=== PATIENT | male | born 2000 | race American Indian/Alaskan Native ===

== ENCOUNTER 2019-02-03 20:16 | Emergency (ER) | payer SELFPAY ==
[2019-02-03] MEDS ORDERED: IBUPROFEN 600 MG TAB PO ONE ×2 (22:05→22:07)
--- NOTE | 2019-02-03 22:05 | Event Note ---
ED Screening Note ED Screening Note: paronychia to the left middle finger that began three days ago +subjective fever states he bites his finger nails This initial assessment/diagnostic orders/clinical plan/treatment(s) is/are subject to change based on patients health status, clinical progression and re- assessment by fellow clinical providers in the ED. Further treatment and workup at subsequent clinical providers discretion. Patient/guardian urged not to elope from the ED as their condition may be serious if not clinically assessed and managed. Initial orders include: given ibuprofen needs I&D
--- NOTE | 2019-02-04 01:42 | Emergency Department Report ---
- General Chief complaint: Skin/Abscess/Foreign Body Stated complaint: LT HAND PAIN Time Seen by Provider: 02/03/19 22:03 Source: patient Mode of arrival: Ambulatory Limitations: No Limitations - History of Present Illness Initial comments: pt is is a 18 y/o aam who presents for left index finger paronychia, states he bites his finger nails, and has developed and infection. There is no fever or chills no n/v , there is erythema swelling pain to finger tip. MD complaint: other (paronychia left index finger ) Onset/Timin -: hour(s) Location: L hand Severity: moderate Severity scale (0 -10): 5 Quality: aching Consistency: constant Improves with: none Worsens with: movement Context: none Associated symptoms: denies other symptoms Treatments Prior to Arrival: none - Related Data Previous Rx's Medication Instructions Recorded Last Taken Type cephALEXin [Keflex] 500 mg PO Q8HR #30 cap 02/04/19 Unknown Rx traMADoL [Ultram] 50 mg PO Q6HR PRN #12 tablet 02/04/19 Unknown Rx Allergies Allergy/AdvReac Type Severity Reaction Status Date / Time nut - unspecified Allergy Hives Verified 02/03/19 21:13 Abscess Boil HPI - HPI Chief Complaint: Skin/Abscess/Foreign Body Stated Complaint: LT HAND PAIN Time Seen by Provider: 02/03/19 22:03 Home Medications: Previous Rx's Medication Instructions Recorded Last Taken Type cephALEXin [Keflex] 500 mg PO Q8HR #30 cap 02/04/19 Unknown Rx traMADoL [Ultram] 50 mg PO Q6HR PRN #12 tablet 02/04/19 Unknown Rx Allergies/Adverse Reactions: Allergies Allergy/AdvReac Type Severity Reaction Status Date / Time nut - unspecified Allergy Hives Verified 02/03/19 21:13 ED Review of Systems ROS: Stated complaint: LT HAND PAIN Other details as noted in HPI Constitutional: denies: chills, fever Eyes: denies: eye pain, eye discharge, vision change ENT: denies: ear pain, throat pain Respiratory: denies: cough, shortness of breath, wheezing Cardiovascular: denies: chest pain, palpitations Endocrine: no symptoms reported Gastrointestinal: denies: abdominal pain, nausea, diarrhea Genitourinary: denies: urgency, dysuria Musculoskeletal: other (left index finger pain ). denies: back pain, joint swelling, arthralgia Skin: denies: rash, lesions Neurological: denies: headache, weakness, paresthesias Psychiatric: denies: anxiety, depression Hematological/Lymphatic: denies: easy bleeding, easy bruising ED Past Medical Hx - Past Medical History Previous Medical History?: Yes Additional medical history: Hidradenitis Suppurativa, "HS under both underarms" anemia - Surgical History Past Surgical History?: No - Social History Smoking Status: Never Smoker Substance Use Type: None - Medications Home Medications: Home Medications Medication Instructions Recorded Confirmed Last Taken Type cephALEXin [Keflex] 500 mg PO Q8HR #30 cap 02/04/19 Unknown Rx traMADoL [Ultram] 50 mg PO Q6HR PRN #12 tablet 02/04/19 Unknown Rx ED Physical Exam - General Limitations: No Limitations General appearance: alert, in no apparent distress - Head Head exam: Present: atraumatic, normocephalic - Eye Eye exam: Present: normal appearance, PERRL, EOMI Pupils: Present: normal accommodation - ENT ENT exam: Present: mucous membranes moist - Neck Neck exam: Present: normal inspection - Respiratory Respiratory exam: Present: normal lung sounds bilaterally. Absent: respiratory distress - Cardiovascular Cardiovascular Exam: Present: regular rate, normal rhythm, normal heart sounds. Absent: systolic murmur, diastolic murmur, rubs, gallop - GI/Abdominal GI/Abdominal exam: Present: soft, normal bowel sounds - Rectal Rectal exam: Present: deferred - Extremities Exam Extremities exam: Present: normal inspection - Back Exam Back exam: Present: normal inspection, full ROM. Absent: tenderness, rash noted - Neurological Exam Neurological exam: Present: alert, oriented X3, CN II-XII intact, normal gait, reflexes normal. Absent: motor sensory deficit - Psychiatric Psychiatric exam: Present: normal affect - Skin Skin exam: Present: warm, dry, intact, normal color, erythema. Absent: rash ED Course Vital Signs 02/03/19 20:23 Temperature 100.0 F H Pulse Rate 134 H Respiratory 18 Rate Blood Pressure 125/59 O2 Sat by Pulse 96 Oximetry - I & D Left Dorsal Finger Type of Procedure: Simple Site: left index finger paronychia Blade Size: 11 I & D Procedure: betadine prep, sterile dressing applied Progress: left index finger paronychia , site cleaned with betadine solution, anesthesia with lidocaine 1% plain, via digital block, incision with 11 blade straight , moderate purulent drainage, nail bed probed , irrigated wtih 10 cc sterile saline , sterile dressing applied all bleeding is controlled, pt given wound care instructions rom intact and unresticted, pt tolerated procedure with minimal distress. ED Medical Decision Making - Medical Decision Making paronychia for I&D , see procedure note, pt given wound care instructions , verbalized agreement and understanding of same, pt for dc to home in stable condition at this time. Critical care attestation.: If time is entered above; I have spent that time in minutes in the direct care of this critically ill patient, excluding procedure time. ED Disposition Clinical Impression: Paronychia of finger of left hand Disposition: DC-01 TO HOME OR SELFCARE Is pt being admited?: No Does the pt Need Aspirin: No Condition: Stable Instructions: Paronychia (ED), Wound Infection (ED) Prescriptions: cephALEXin [Keflex] 500 mg PO Q8HR #30 cap traMADoL [Ultram] 50 mg PO Q6HR PRN #12 tablet PRN Reason: Pain Referrals: [facility] [Outside] - 2-3 Days Forms: Work/School Release Form(ED) Time of Disposition: 01:52
[2019-02-04 02:02] VITALS: BP 121/62
== END 2019-02-04 02:00 | disposition home or self-care (01) ==
LOC: ED 20:16
DX: L03.012 Cellulitis of left finger (principal)
CPT/HCPCS: 99282

== ENCOUNTER 2021-05-25 16:32 | Emergency (ER) | payer SELFPAY ==
[2021-05-25 16:40] VITALS: BP 121/69
== END 2021-05-25 21:40 | disposition left against medical advice (07) ==
LOC: ED 16:32
DX: Z53.21 Procedure and treatment not carried out due to patient leaving prior to being seen by health care provider (principal)